=== PATIENT | female | born 1975 | race African-American/Black ===

== ENCOUNTER 2016-08-15 08:44 | Emergency (ER) | payer OTHER ==
[~2016-08-15] VITALS: Ht 180.3 cm; Wt 97.7 kg
[~2016-08-15 08:44] MED LIST: BUPR-102 PO; FS300; INSASP; METF500T; METF500T4 PO; SITA50TA3 PO
[2016-08-15] MEDS ORDERED: IBUPROFEN 600MG TABLET PO STA (10:35)
[2016-08-15 11:57] LABS: BASOPHILS % 1.1 % (0.0-2.0); EOSINOPHILS % 2.5 % (0.0-5.0); HEMATOCRIT. 35.9 % (36.0-48.0); HEMOGLOBIN. 11.6 g/dL (12.0-16.0); LYMPHOCYTES % 24.2 % (20.0-50.0); MEAN CORPUSCULAR HEMOGLOBIN 28.8 pg (28.0-32.0); MEAN CORPUSCULAR HGB CONC 32.3 g/dL (31.0-37.0); MEAN CORPUSCULAR VOLUME 89.1 fL (81.0-99.0); MEAN PLATELET VOLUME 8.7 fl (7.4-10.4); MONOCYTES % 6.3 % (2.0-8.0); NEUTROPHILS % 65.9 % (40.0-76.0); PLATELET 274 x1000/uL (130-400); RED BLOOD CELL COUNT 4.03 mill/uL (4.2-5.4); RED CELL DISTRIBUTION WIDTH 13.9 % (11.6-14.6); WHITE BLOOD COUNT 8.4 x1000/uL (4.5-11.0)
[2016-08-15 12:00] VITALS: BP 151/86
[2016-08-15 12:05] LABS: CHLORIDE 107 mEq/L (98-107); INDEX HEMOLYSI 1 (1-3); INDEX ICTERIC 1 (1-4); INDEX LIPEMIC 1 (1-3)
[2016-08-15 12:15] LABS: ALANINE AMINOTRANSFERASE 19 IU/L (13-61); ALBUMIN 3.2 g/dL (3.4-5.0); ANION GAP 9; CALCIUM 9.3 mg/dL (8.5-10.1); CARBON DIOXIDE 30 mEq/L (21-32); UREA NITROGEN BLOOD 11 mg/dL (7-21); eGFR > 60 mL/min (>60)
== END 2016-08-15 15:33 | disposition home or self-care (01) ==
LOC: ER 09:51
DX: R07.9 Chest pain, unspecified (principal); D64.9 Anemia, unspecified; I10 Essential (primary) hypertension; E11.9 Type 2 diabetes mellitus without complications; Z79.4 Long term (current) use of insulin; Z90.710 Acquired absence of both cervix and uterus; Z79.899 Other long term (current) drug therapy
CPT/HCPCS: 36415; 71010; 80053; 81025; 84484; 85025; 93005; 99285

== ENCOUNTER 2016-09-03 13:55 | Emergency (ER) | payer OTHER ==
[~2016-09-03] VITALS: Ht 180.3 cm; Wt 10.0 kg
[2016-09-03 16:30] LABS: CLARITY URINE CLEAR (CLEAR); COLOR URINE YELLOW (YELLOW); GLUCOSE URINE NEGATIVE (NEGATIVE); KETONES URINE NEGATIVE (NEGATIVE); LEUKOCYTE ESTERASE URINE NEGATIVE (NEGATIVE); NITRITE URINE NEGATIVE (NEGATIVE); OCCULT BLOOD URINE NEGATIVE (NEGATIVE); PH URINE 5.5 (4.5-8.0); PROTEIN URINE NEGATIVE (NEGATIVE); SPECIFIC GRAVITY URINE 1.013 (1.005-1.030)
[2016-09-03 16:43] LABS: BASOPHILS % 0.5 % (0.0-2.0); CHLORIDE 105 mEq/L (98-107); HEMATOCRIT. 38.4 % (36.0-48.0); HEMOGLOBIN. 12.5 g/dL (12.0-16.0); INDEX HEMOLYSI 1 (1-3); INDEX ICTERIC 1 (1-4); INDEX LIPEMIC 1 (1-3); LYMPHOCYTES % 24.6 % (20.0-50.0); MEAN CORPUSCULAR HEMOGLOBIN 28.6 pg (28.0-32.0); MEAN CORPUSCULAR HGB CONC 32.5 g/dL (31.0-37.0); MEAN CORPUSCULAR VOLUME 88.2 fL (81.0-99.0); MEAN PLATELET VOLUME 9.3 fl (7.4-10.4); MONOCYTES % 4.5 % (2.0-8.0); NEUTROPHILS % 68.4 % (40.0-76.0); PLATELET 214 x1000/uL (130-400); RED BLOOD CELL COUNT 4.35 mill/uL (4.2-5.4); RED CELL DISTRIBUTION WIDTH 13.7 % (11.6-14.6)
[2016-09-03 16:46] LABS: ANION GAP 9; CALCIUM 9.7 mg/dL (8.5-10.1); CARBON DIOXIDE 30 mEq/L (21-32); UREA NITROGEN BLOOD 15 mg/dL (7-21)
[2016-09-03 16:49] LABS: eGFR > 60 mL/min (>60)
[2016-09-03 17:36] VITALS: BP 134/78
== END 2016-09-03 17:43 | disposition home or self-care (01) ==
LOC: ER 14:53
DX: R30.0 Dysuria (principal); I10 Essential (primary) hypertension; E11.8 Type 2 diabetes mellitus with unspecified complications; Z79.84 Long term (current) use of oral hypoglycemic drugs; Z90.710 Acquired absence of both cervix and uterus
CPT/HCPCS: 36415; 80048; 81003; 81025; 85025; 99284

== ENCOUNTER 2016-09-08 20:14 | Emergency (ER) | payer OTHER ==
[~2016-09-08] VITALS: Ht 172.7 cm; Wt 72.0 kg
[2016-09-08] MEDS ORDERED: ALPRAZOLAM 0.25 MG TABLET PO ONE (21:30)
[2016-09-09 00:25] VITALS: BP 148/78
== END 2016-09-09 00:30 | disposition home or self-care (01) ==
LOC: ER 20:15
DX: F41.9 Anxiety disorder, unspecified (principal); E11.9 Type 2 diabetes mellitus without complications; D64.9 Anemia, unspecified; I10 Essential (primary) hypertension; Z79.1 Long term (current) use of non-steroidal anti-inflammatories (NSAID); Z79.4 Long term (current) use of insulin; Z79.84 Long term (current) use of oral hypoglycemic drugs; Z90.710 Acquired absence of both cervix and uterus
CPT/HCPCS: 93005; 99283

== ENCOUNTER 2016-10-04 00:42 | Emergency (ER) | payer OTHER ==
[~2016-10-04] VITALS: Ht 180.3 cm; Wt 95.0 kg
[2016-10-04 00:46] VITALS: BP 143/80
== END 2016-10-04 01:48 | disposition home or self-care (01) ==
LOC: ER 00:43
DX: F41.9 Anxiety disorder, unspecified (principal); E11.9 Type 2 diabetes mellitus without complications; I10 Essential (primary) hypertension; D64.9 Anemia, unspecified; Z79.4 Long term (current) use of insulin; Z90.710 Acquired absence of both cervix and uterus
CPT/HCPCS: 99283; Z7610

== ENCOUNTER 2016-12-19 14:50 | Emergency (ER) | payer OTHER ==
[~2016-12-19] VITALS: Ht 180.3 cm; Wt 99.0 kg
[2016-12-19 14:57] VITALS: BP 158/91
== END 2016-12-20 00:04 | disposition left against medical advice (07) ==
LOC: ER 23:01
DX: R30.9 Painful micturition, unspecified (principal); Z53.21 Procedure and treatment not carried out due to patient leaving prior to being seen by health care provider

== ENCOUNTER 2017-12-12 04:04 | Emergency (ER) | payer OTHER ==
[~2017-12-12] VITALS: Ht 180.3 cm; Wt 100.0 kg
[~2017-12-12 04:04] MED LIST changes: +FERR325T23; -FS300; -METF500T4 PO; +METF500T6 PO
[2017-12-12 08:01] LABS: BASOPHILS % 0.7 % (0.0-2.0); EOSINOPHILS % 4.1 % (0.0-5.0); HEMATOCRIT. 36.4 % (36.0-48.0); HEMOGLOBIN. 11.9 g/dL (12.0-16.0); LYMPHOCYTES % 22.1 % (20.0-50.0); MEAN CORPUSCULAR HEMOGLOBIN 28.5 pg (28.0-32.0); MEAN CORPUSCULAR VOLUME 86.9 fL (81.0-99.0); MEAN PLATELET VOLUME 8.6 fl (7.4-10.4); MONOCYTES % 5.3 % (2.0-8.0); NEUTROPHILS % 67.8 % (40.0-76.0); PLATELET 288 x1000/uL (130-400); RED BLOOD CELL COUNT 4.19 mill/uL (4.2-5.4); RED CELL DISTRIBUTION WIDTH 13.9 % (11.6-14.6)
[2017-12-12 08:04] LABS: CHLORIDE 104 mEq/L (98-107)
[2017-12-12 08:05] LABS: PROTHROMBIN TIME 10.9 sec (9.4-11.6)
[2017-12-12 08:36] LABS: CLARITY URINE CLEAR (CLEAR); COLOR URINE YELLOW (YELLOW); KETONES URINE NEGATIVE (NEGATIVE); LEUKOCYTE ESTERASE URINE NEGATIVE (NEGATIVE); NITRITE URINE NEGATIVE (NEGATIVE); OCCULT BLOOD URINE NEGATIVE (NEGATIVE); PH URINE 5.5 (4.5-8.0); PROTEIN URINE NEGATIVE (NEGATIVE); SPECIFIC GRAVITY URINE 1.017 (1.005-1.030)
[2017-12-12 10:27] VITALS: BP 135/88
== END 2017-12-12 11:08 | disposition home or self-care (01) ==
LOC: ER 04:54
DX: R53.1 Weakness (principal); D64.9 Anemia, unspecified; J45.909 Unspecified asthma, uncomplicated; F32.9 Major depressive disorder, single episode, unspecified; E11.9 Type 2 diabetes mellitus without complications; I10 Essential (primary) hypertension; Z79.4 Long term (current) use of insulin
CPT/HCPCS: 36415; 71045; 80053; 81003; 81025; 82962; 83690; 85025; 85610; 99285; Z7610

== ENCOUNTER 2018-01-08 09:31 | Emergency (ER) | payer OTHER ==
[~2018-01-08] VITALS: Ht 180.3 cm; Wt 100.0 kg
[2018-01-08] MEDS ORDERED: ACETAMINOPHEN 325MG TABLET PO STA (10:42)
[2018-01-08 11:12] LABS: BASOPHILS % 0.6 % (0.0-2.0); EOSINOPHILS % 1.1 % (0.0-5.0); HEMATOCRIT. 36.3 % (36.0-48.0); LYMPHOCYTES % 23.3 % (20.0-50.0); MEAN CORPUSCULAR HEMOGLOBIN 28.7 pg (28.0-32.0); MEAN CORPUSCULAR VOLUME 87.1 fL (81.0-99.0); MEAN PLATELET VOLUME 8.8 fl (7.4-10.4); MONOCYTES % 4.5 % (2.0-8.0); NEUTROPHILS % 70.5 % (40.0-76.0); PLATELET 237 x1000/uL (130-400); RED BLOOD CELL COUNT 4.17 mill/uL (4.2-5.4); RED CELL DISTRIBUTION WIDTH 13.8 % (11.6-14.6)
[2018-01-08 11:16] LABS: CHLORIDE 106 mEq/L (98-107)
[2018-01-08 11:17] LABS: PROTHROMBIN TIME 10.5 sec (9.1-11.1)
[2018-01-08] MEDS ORDERED: KETOROLAC 15MG/ML VIAL IV ONE (13:15)
[2018-01-08] MEDS ORDERED: IBUPROFEN 600MG TABLET PO ONE (13:30)
[2018-01-08 13:53] VITALS: BP 134/81
== END 2018-01-08 14:00 | disposition home or self-care (01) ==
LOC: ER 09:31
DX: R07.89 Other chest pain (principal); M25.511 Pain in right shoulder; I10 Essential (primary) hypertension; E11.9 Type 2 diabetes mellitus without complications; J45.909 Unspecified asthma, uncomplicated; F32.9 Major depressive disorder, single episode, unspecified; Z90.49 Acquired absence of other specified parts of digestive tract; Z79.4 Long term (current) use of insulin
CPT/HCPCS: 36415; 71045; 73030; 80053; 82962; 83880; 84484; 85025; 85610; 93005; 99285; J7030; Z7610; J1885

== ENCOUNTER 2018-02-13 10:19 | Emergency (ER) | payer OTHER ==
[~2018-02-13] VITALS: Ht 165.1 cm; Wt 70.0 kg
[2018-02-13] MEDS ORDERED: SODIUM CHLORIDE 0.9% 1,000 ML IV ONE (10:34)
[2018-02-13] MEDS ORDERED: METHYLPREDNISOLONE SOD SUCC 125 MG/2 ML VIAL IV STA (10:41)
[2018-02-13] MEDS ORDERED: ALBUTEROL (0.083%) 2.5MG/3ML NEB HHN STA (10:41)
[2018-02-13] MEDS ORDERED: METHYLPREDNISOLONE SOD SUCC 125 MG/2 ML VIAL IV ONE (11:15)
[2018-02-13 11:45] LABS: BASOPHILS % 0.5 % (0.0-2.0); EOSINOPHILS % 2.6 % (0.0-5.0); HEMATOCRIT. 37.1 % (36.0-48.0); HEMOGLOBIN. 12.3 g/dL (12.0-16.0); LYMPHOCYTES % 38.7 % (20.0-50.0); MEAN CORPUSCULAR HEMOGLOBIN 28.7 pg (28.0-32.0); MEAN CORPUSCULAR VOLUME 86.4 fL (81.0-99.0); MEAN PLATELET VOLUME 9.8 fl (7.4-10.4); MONOCYTES % 5.9 % (2.0-8.0); NEUTROPHILS % 52.3 % (40.0-76.0); PARTIAL THROMBOPLASTIN TIME 25.6 sec (23.4-31.0); PLATELET 237 x1000/uL (130-400); PROTHROMBIN TIME 10.1 sec (9.1-11.1); RED CELL DISTRIBUTION WIDTH 14.3 % (11.6-14.6)
[2018-02-13 11:49] LABS: CHLORIDE 104 mEq/L (98-107)
[2018-02-13 12:01] LABS: HCG SCREEN NEGATIVE
[2018-02-13 13:45] VITALS: BP 124/70
[2018-02-13 14:22] LABS: *AMPHETAMINES SCREEN URINE NEGATIVE (NEGATIVE); *BARBITURATES SCREEN URINE NEGATIVE (NEGATIVE)
[2018-02-13 14:23] LABS: *BENZODIAZEPINES SCREEN URINE NEGATIVE (NEGATIVE); *COCAINE SCREEN URINE NEGATIVE (NEGATIVE); OPIATES URINE SCREEN NEGATIVE (NEGATIVE)
[2018-02-13 14:24] LABS: CANNABINOID URINE SCREEN NEGATIVE (NEGATIVE); METHADONE URINE SCREEN NEGATIVE (NEGATIVE); PHENCYCLIDINE URINE SCREEN NEGATIVE (NEGATIVE)
== END 2018-02-13 13:56 | disposition home or self-care (01) ==
LOC: ER 10:36
DX: R07.89 Other chest pain (principal); J45.901 Unspecified asthma with (acute) exacerbation; E11.65 Type 2 diabetes mellitus with hyperglycemia; I10 Essential (primary) hypertension; F32.9 Major depressive disorder, single episode, unspecified; E46 Unspecified protein-calorie malnutrition; Z68.25 Body mass index [BMI] 25.0-25.9, adult; Z79.4 Long term (current) use of insulin; Z90.49 Acquired absence of other specified parts of digestive tract; Z90.710 Acquired absence of both cervix and uterus
CPT/HCPCS: 36415; 71045; 80053; 80305; 81025; 83690; 83880; 84484; 84703; 85025; 85610; 85730; 93005; 94640; 96361; 96374; 99285; J2930; J7030; J7611; Z7610

== ENCOUNTER 2018-04-09 18:39 | Emergency (ER) | payer OTHER ==
[~2018-04-09] VITALS: Ht 180.3 cm; Wt 93.0 kg
[~2018-04-09 18:39] MED LIST changes: +METF-414 PO; -METF500T6 PO
[2018-04-09] MEDS ORDERED: PREDNISONE 20MG TABLET PO STA (20:38)
[2018-04-09] MEDS ORDERED: IPRATROPIUM/ALBUTEROL 0.5-3(2.5)MG/3ML NEB HHN ONE (20:45)
[2018-04-09] MEDS ORDERED: AZITHROMYCIN 500 MG TABLET PO ONE (20:45)
[2018-04-10 02:00] VITALS: BP 122/78
== END 2018-04-10 02:00 | disposition home or self-care (01) ==
LOC: ER 18:39
DX: J45.901 Unspecified asthma with (acute) exacerbation (principal); E11.9 Type 2 diabetes mellitus without complications; I10 Essential (primary) hypertension; Z90.710 Acquired absence of both cervix and uterus; Z90.49 Acquired absence of other specified parts of digestive tract; Z79.4 Long term (current) use of insulin
CPT/HCPCS: 71045; 94640; 99283; J7512; J7620

== ENCOUNTER 2018-09-22 18:20 | Emergency (ER) | payer OTHER ==
[~2018-09-22] VITALS: Ht 180.3 cm; Wt 93.0 kg
[2018-09-22] MEDS ORDERED: IBUPROFEN 600MG TABLET PO ONE (18:45)
[2018-09-22] MEDS ORDERED: IBUPROFEN 600MG TABLET PO NR (19:15)
[2018-09-22 22:00] VITALS: BP 135/90
== END 2018-09-22 22:02 | disposition home or self-care (01) ==
LOC: ER 18:20
DX: R10.2 Pelvic and perineal pain (principal); M54.5 Low back pain; M25.559 Pain in unspecified hip; E11.9 Type 2 diabetes mellitus without complications; Z90.89 Acquired absence of other organs; Z91.81 History of falling
CPT/HCPCS: 72170; 81025; 99283

== ENCOUNTER 2020-11-17 19:37 | Emergency (ER) | payer OTHER ==
[~2020-11-17] VITALS: Ht 180.3 cm; Wt 99.0 kg
[2020-11-17 20:54] VITALS: BP 164/102
[2020-11-17] MEDS ORDERED: ACETAMINOPHEN 325MG TABLET PO STA (21:46)
[2020-11-17] MEDS ORDERED: MAGNESIUM/ALUMINUM HYDROXIDE/SIMETHICONE 30ML UDC PO STA (21:46)
[2020-11-17] MEDS ORDERED: FAMOTIDINE 20MG TABLET PO SCH (22:00)
[2020-11-17 22:01] LABS: BASOPHILS % 0.5 % (0.0-2.0); EOSINOPHILS % 1.4 % (0.0-5.0); HEMATOCRIT. 38.3 % (36.0-48.0); LYMPHOCYTES % 25.7 % (20.0-50.0); MEAN CORPUSCULAR HEMOGLOBIN 29.1 pg (28.0-32.0); MEAN CORPUSCULAR VOLUME 85.9 fL (81.0-99.0); MEAN PLATELET VOLUME 9.8 fl (7.4-10.4); MONOCYTES % 4.4 % (2.0-8.0); PLATELET 222 x1000/uL (130-400); RED BLOOD CELL COUNT 4.46 mill/uL (4.2-5.4); RED CELL DISTRIBUTION WIDTH 13.5 % (11.6-14.6)
[2020-11-17 22:06] LABS: CHLORIDE 102 mEq/L (98-107)
[2020-11-17 22:07] LABS: CLARITY URINE CLEAR (CLEAR); COLOR URINE YELLOW (YELLOW); KETONES URINE NEGATIVE (NEGATIVE); LEUKOCYTE ESTERASE URINE NEGATIVE (NEGATIVE); NITRITE URINE NEGATIVE (NEGATIVE); OCCULT BLOOD URINE NEGATIVE (NEGATIVE); PROTEIN URINE NEGATIVE (NEGATIVE); SPECIFIC GRAVITY URINE 1.023 (1.005-1.030)
[2020-11-17 22:08] LABS: PROTHROMBIN TIME 10.3 sec (9.6-11.0)
[2020-11-18] MEDS ORDERED: PROT20 MT (00:14)
== END 2020-11-18 00:26 | disposition home or self-care (01) ==
LOC: ER 19:37
DX: R10.13 Epigastric pain (principal); J45.909 Unspecified asthma, uncomplicated; E11.9 Type 2 diabetes mellitus without complications; I10 Essential (primary) hypertension; Z90.710 Acquired absence of both cervix and uterus; Z90.49 Acquired absence of other specified parts of digestive tract; Z79.4 Long term (current) use of insulin; Z79.899 Other long term (current) drug therapy
CPT/HCPCS: 36415; 76705; 80053; 81003; 85025; 99284

== ENCOUNTER 2020-12-20 09:50 | Emergency (ER) | payer OTHER, MEDICAID ==
[~2020-12-20] VITALS: Ht 177.8 cm; Wt 91.0 kg
[~2020-12-20 09:50] MED LIST changes: +PROT20 MT
[2020-12-20] MEDS ORDERED: SODIUM CHLORIDE 0.9% 1,000 ML IV ONE (10:15)
[2020-12-20 11:38] LABS: BASOPHILS % 0.7 % (0.0-2.0); EOSINOPHILS % 1.3 % (0.0-5.0); HEMATOCRIT. 38.7 % (36.0-48.0); HEMOGLOBIN. 12.6 g/dL (12.0-16.0); MEAN CORPUSCULAR HEMOGLOBIN 28.5 pg (28.0-32.0); MEAN CORPUSCULAR VOLUME 87.6 fL (81.0-99.0); MEAN PLATELET VOLUME 9.4 fl (7.4-10.4); MONOCYTES % 3.8 % (2.0-8.0); NEUTROPHILS % 75.2 % (40.0-76.0); PLATELET 247 x1000/uL (130-400); RED BLOOD CELL COUNT 4.42 mill/uL (4.2-5.4)
[2020-12-20 11:48] LABS: CHLORIDE 107 mEq/L (98-107)
[2020-12-20 12:00] VITALS: BP 146/95
== END 2020-12-20 12:37 | disposition home or self-care (01) ==
LOC: ER 09:58
DX: R55 Syncope and collapse (principal); E11.9 Type 2 diabetes mellitus without complications; I10 Essential (primary) hypertension; J45.909 Unspecified asthma, uncomplicated; Z90.710 Acquired absence of both cervix and uterus; Z90.49 Acquired absence of other specified parts of digestive tract
CPT/HCPCS: 36415; 71045; 80053; 85025; 93005; 96360; 99285; J7030

== ENCOUNTER 2021-03-01 10:16 | Emergency (ER) | payer MEDICAID, OTHER ==
[~2021-03-01] VITALS: Ht 165.1 cm; Wt 100.0 kg
[2021-03-01 11:29] VITALS: BP 162/92
[2021-03-01] MEDS ORDERED: IBUPROFEN 800MG TABLET PO ONE (11:30)
[2021-03-01] MEDS ORDERED: KETOROLAC 30MG/ML VIAL IM ONE (11:30)
[2021-03-01] MEDS ORDERED: ACETAMINOPHEN WITH CODEINE 300/30MG TABLET PO ONE (11:30)
[2021-03-01] MEDS ORDERED: IBUP-2029 MT (12:27)
[2021-03-01] MEDS ORDERED: ACET-2708 MT (12:27)
== END 2021-03-01 13:00 | disposition home or self-care (01) ==
LOC: ER 10:16
DX: M25.562 Pain in left knee (principal); I10 Essential (primary) hypertension; E11.9 Type 2 diabetes mellitus without complications; Z79.4 Long term (current) use of insulin
CPT/HCPCS: 73562; 96372; 99283; J1885

== ENCOUNTER 2022-03-16 17:55 | Emergency (ER) | payer MEDICAID, OTHER ==
[~2022-03-16] VITALS: Ht 180.3 cm; Wt 85.0 kg
[~2022-03-16 17:55] MED LIST changes: +ACET-2708 MT; +IBUP-2029 MT
[2022-03-16 18:13] VITALS: BP 117/71
== END 2022-03-16 22:59 | disposition left against medical advice (07) ==
LOC: ER 17:55
DX: Z53.21 Procedure and treatment not carried out due to patient leaving prior to being seen by health care provider (principal)

== ENCOUNTER 2022-03-22 22:45 | Emergency (ER) | payer OTHER ==
[~2022-03-22] VITALS: Ht 172.7 cm; Wt 85.0 kg
[2022-03-22 23:38] VITALS: BP 149/90
[2022-03-23] MEDS ORDERED: PERM59LI8 TP (01:38)
== END 2022-03-23 02:02 | disposition home or self-care (01) ==
LOC: ER 22:54
DX: B85.2 Pediculosis, unspecified (principal); J45.909 Unspecified asthma, uncomplicated; E11.9 Type 2 diabetes mellitus without complications; I10 Essential (primary) hypertension; Z90.710 Acquired absence of both cervix and uterus; Z90.49 Acquired absence of other specified parts of digestive tract; Z79.899 Other long term (current) drug therapy
CPT/HCPCS: 99282

== ENCOUNTER 2022-06-04 14:56 | Emergency (ER) | payer OTHER ==
[~2022-06-04] VITALS: Ht 180.3 cm; Wt 86.0 kg
[~2022-06-04 14:56] MED LIST changes: +PERM59LI8 TP
[2022-06-04 15:00] VITALS: BP 180/86
[2022-06-04 17:22] LABS: CLARITY URINE CLEAR (CLEAR); COLOR URINE YELLOW (YELLOW); KETONES URINE 1+ (NEGATIVE); LEUKOCYTE ESTERASE URINE NEGATIVE (NEGATIVE); NITRITE URINE NEGATIVE (NEGATIVE); OCCULT BLOOD URINE NEGATIVE (NEGATIVE); PH URINE 5.5 (4.5-8.0); PROTEIN URINE NEGATIVE (NEGATIVE); SPECIFIC GRAVITY URINE 1.027 (1.005-1.030)
[2022-06-04 20:02] LABS: BASOPHILS % 0.4 % (0.0-2.0); EOSINOPHILS % 0.7 % (0.0-5.0); HEMATOCRIT. 39.1 % (36.0-48.0); HEMOGLOBIN. 12.6 g/dL (12.0-16.0); LYMPHOCYTES % 14.5 % (20.0-50.0); MEAN CORPUSCULAR HEMOGLOBIN 28.8 pg (28.0-32.0); MEAN CORPUSCULAR VOLUME 89.5 fL (81.0-99.0); MEAN PLATELET VOLUME 10.7 fl (7.4-10.4); MONOCYTES % 7.7 % (2.0-8.0); NEUTROPHILS % 76.7 % (40.0-76.0); PLATELET 297 x1000/uL (130-400); RED BLOOD CELL COUNT 4.37 mill/uL (4.2-5.4); RED CELL DISTRIBUTION WIDTH 13.9 % (11.6-14.6)
[2022-06-04 20:22] LABS: CHLORIDE 98 mEq/L (98-107)
[2022-06-04 20:43] LABS: HCG SCREEN NEGATIVE
[2022-06-05] MEDS ORDERED: INSULIN LISPRO 100 UNITS/ML SUBCUT SCH (08:20)
[2022-06-05] MEDS ORDERED: BLOOD SUGAR DIAGNOSTIC STRIP TEST SCH (09:00)
== END 2022-06-04 23:20 | disposition home or self-care (01) ==
LOC: ER 14:56
DX: N13.30 Unspecified hydronephrosis (principal); N13.70 Vesicoureteral-reflux, unspecified; D27.1 Benign neoplasm of left ovary; E11.65 Type 2 diabetes mellitus with hyperglycemia; I10 Essential (primary) hypertension; J45.909 Unspecified asthma, uncomplicated; Z79.4 Long term (current) use of insulin; Z90.49 Acquired absence of other specified parts of digestive tract; Z90.710 Acquired absence of both cervix and uterus
CPT/HCPCS: 36415; 74176; 80053; 81003; 84703; 85025; 99284

== ENCOUNTER 2022-11-12 18:16 | Emergency (ER) | payer OTHER ==
[~2022-11-12] VITALS: Ht 172.7 cm; Wt 68.0 kg
[2022-11-12 18:26] VITALS: TEMP 98.7; O2SAT 96
[2022-11-12] MEDS ORDERED: SODIUM CHLORIDE 0.9% 1,000 ML IV ONE ×2 (18:45)
[2022-11-12 20:36] LABS: BASOPHILS % 0.5 % (0.0-2.0); EOSINOPHILS % 0.8 % (0.0-5.0); HEMATOCRIT. 39.4 % (36.0-48.0); HEMOGLOBIN. 12.8 g/dL (12.0-16.0); LYMPHOCYTES % 18.2 % (20.0-50.0); MEAN CORPUSCULAR HEMOGLOBIN 28.3 pg (28.0-32.0); MEAN CORPUSCULAR VOLUME 87.4 fL (81.0-99.0); MONOCYTES % 5.4 % (2.0-8.0); NEUTROPHILS % 75.1 % (40.0-76.0); PLATELET 245 x1000/uL (130-400); RED BLOOD CELL COUNT 4.51 mill/uL (4.2-5.4); RED CELL DISTRIBUTION WIDTH 13.9 % (11.6-14.6)
[2022-11-12 20:43] LABS: CHLORIDE 106 mEq/L (98-107)
[2022-11-12 21:04] LABS: BETA HYDROXYBUTYRATE 0.9 mMol/L (0.0-0.3)
[2022-11-12 21:30] VITALS: BP 134/89; PULSE 103; RESP 14
== END 2022-11-12 21:51 | disposition home or self-care (01) ==
LOC: ER 18:16
DX: R55 Syncope and collapse (principal); E11.65 Type 2 diabetes mellitus with hyperglycemia; I10 Essential (primary) hypertension; Z90.710 Acquired absence of both cervix and uterus; J45.909 Unspecified asthma, uncomplicated
CPT/HCPCS: 99285; 96360; 71045; 80053; 82010; 83880; 85025; 84484; 36415; 93005; J7030

== ENCOUNTER 2022-12-13 21:44 | Emergency (ER) | payer OTHER ==
[~2022-12-13] VITALS: Ht 180.3 cm; Wt 78.8 kg
[2022-12-13 21:48] VITALS: O2SAT 98
[2022-12-13 23:01] LABS: BASOPHILS % 0.9 % (0.0-2.0); EOSINOPHILS % 1.5 % (0.0-5.0); HEMATOCRIT. 35.8 % (36.0-48.0); HEMOGLOBIN. 12.1 g/dL (12.0-16.0); LYMPHOCYTES % 28.5 % (20.0-50.0); MEAN CORPUSCULAR HEMOGLOBIN 29.8 pg (28.0-32.0); MEAN CORPUSCULAR VOLUME 88.2 fL (81.0-99.0); MEAN PLATELET VOLUME 9.5 fl (7.4-10.4); NEUTROPHILS % 62.1 % (40.0-76.0); PLATELET 238 x1000/uL (130-400); RED BLOOD CELL COUNT 4.06 mill/uL (4.2-5.4); RED CELL DISTRIBUTION WIDTH 14.1 % (11.6-14.6)
[2022-12-13 23:07] LABS: CHLORIDE 103 mEq/L (98-107)
[2022-12-14 02:50] LABS: CLARITY URINE CLOUDY (CLEAR); COLOR URINE YELLOW (YELLOW); KETONES URINE NEGATIVE (NEGATIVE); LEUKOCYTE ESTERASE URINE NEGATIVE (NEGATIVE); NITRITE URINE NEGATIVE (NEGATIVE); OCCULT BLOOD URINE NEGATIVE (NEGATIVE); PH URINE 5.5 (4.5-8.0); PROTEIN URINE NEGATIVE (NEGATIVE); SPECIFIC GRAVITY URINE 1.022 (1.005-1.030)
[2022-12-14 03:44] LABS: UCG SCREEN NEGATIVE
[2022-12-14] MEDS ORDERED: IBUP-2029 MT (06:00)
[2022-12-14] MEDS ORDERED: METH-653 MT (06:00)
[2022-12-14 06:30] VITALS: BP 145/98; PULSE 83; RESP 14; TEMP 98.4
== END 2022-12-14 07:06 | disposition home or self-care (01) ==
LOC: ER 21:44
DX: R07.89 Other chest pain (principal); J45.909 Unspecified asthma, uncomplicated; E11.9 Type 2 diabetes mellitus without complications; I10 Essential (primary) hypertension; Z90.710 Acquired absence of both cervix and uterus
CPT/HCPCS: 80053; 85025; 84484; 36415; 71045; 93005; 99285; 81003; 81025; Z7610

== ENCOUNTER 2023-03-04 18:50 | Emergency (ER) | payer OTHER ==
[~2023-03-04] VITALS: Ht 180.3 cm; Wt 79.4 kg
[~2023-03-04 18:50] MED LIST changes: +METH-653 MT
[2023-03-04 19:01] VITALS: TEMP 98.2; O2SAT 96
[2023-03-04 21:26] LABS: HEMOGLOBIN. 14.3 g/dL (12.0-16.0); RED BLOOD CELL COUNT 4.89 mill/uL (4.2-5.4); WHITE BLOOD COUNT 13.4 x1000/uL (4.5-11.0)
[2023-03-04 21:27] LABS: BASOPHILS % 0.8 % (0.0-2.0); EOSINOPHILS % 0.8 % (0.0-5.0); LYMPHOCYTES % 29.8 % (20.0-50.0); MEAN CORPUSCULAR HEMOGLOBIN 29.2 pg (28.0-32.0); MEAN CORPUSCULAR HGB CONC 33.2 g/dL (31.0-37.0); MEAN CORPUSCULAR VOLUME 87.9 fL (81.0-99.0); MONOCYTES % 5.7 % (2.0-8.0); NEUTROPHILS % 62.9 % (40.0-76.0); PLATELET 227 x1000/uL (130-400); RED CELL DISTRIBUTION WIDTH 13.8 % (11.6-14.6)
[2023-03-04 21:34] LABS: CALCIUM 9.8 mg/dL (8.5-10.1); CHLORIDE 104 mEq/L (98-107); INDEX HEMOLYSI 1 (1-3); INDEX ICTERIC 1 (1-4); INDEX LIPEMIC 1 (1-3); POTASSIUM 4.5 mEq/L (3.5-5.1); SODIUM 135 mEq/L (136-145)
[2023-03-04 21:43] LABS: ALANINE AMINOTRANSFERASE 20 IU/L (13-61); ALBUMIN 3.6 g/dL (3.4-5.0); ASPARTATE AMINOTRANSFERASE 11 IU/L (15-37); BILIRUBIN TOTAL 0.7 mg/dL (0.1-1.0); CARBON DIOXIDE 27 mEq/L (21-32); CREATININE 1.1 mg/dL (0.6-1.3); PROTEIN TOTAL 8.2 g/dL (6.0-8.3); TROPONIN I HIGH SENSITIVITY 6 ng/L (<54); UREA NITROGEN BLOOD 22 mg/dL (7-21)
[2023-03-04 21:49] LABS: GLUCOSE 416 mg/dL (70-105)
[2023-03-05] MEDS ORDERED: IBUP-1521 MT (01:49)
[2023-03-05] MEDS ORDERED: METH-653 MT (01:49)
[2023-03-05 02:12] VITALS: BP 144/94; PULSE 102; RESP 16
== END 2023-03-05 02:13 | disposition home or self-care (01) ==
LOC: ER 18:50
DX: R07.89 Other chest pain (principal); I10 Essential (primary) hypertension; E11.9 Type 2 diabetes mellitus without complications; J45.909 Unspecified asthma, uncomplicated; Z90.710 Acquired absence of both cervix and uterus; Z90.49 Acquired absence of other specified parts of digestive tract; Z79.899 Other long term (current) drug therapy
CPT/HCPCS: 36415; 71045; 80053; 84484; 85025; 93005; 99285